=== PATIENT | female | born 2000 | race Two or more races ===

== ENCOUNTER 2022-05-19 09:47 | Emergency (ER) | payer MEDICAID, OTHER ==
[~2022-05-19] VITALS: Ht 160 cm; Wt 68.0 kg
[2022-05-19 10:45] LABS: Basophils # (auto) 0 10 ^3/uL (0-0.2); Basophils % (auto) 0.2 % (0.0-2.0); Eosinophils # (auto) 0 10 ^3/uL (0-0.8); Eosinophils % (auto) 0.6 % (0.0-7.0); Hematocrit 39.4 % (36.0-46.0); Hemoglobin 13.4 g/dL (12.2-16.2); Lymphocytes # (auto) 0.8 10 ^3/uL (0.4-5.4); Lymphocytes % (auto) 13.2 % (10.0-50.0); Mean Corpuscular Hemoglobin 28.1 pg (28.0-32.0); Mean Corpuscular Volume 82.6 fL (80.0-100.0); Monocytes # (auto) 0.5 10 ^3/uL (0-1.3); Neutrophils # (auto) 4.8 10 ^3/uL (1.6-8.6); Nucleated Red Blood Cells % 0.1 %; Red Blood Cells 4.77 10^6/uL (4.0-5.20); Red Cell Distribution Width 13.7 % (11.8-14.3); White Blood Cell 6.2 10^3/uL (4.4-10.8)
[2022-05-19 11:33] LABS: Urine Bacteria MOD /hpf (None Seen); Urine Blood TRACE /uL (Negative); Urine Specific Gravity 1.023 (1.001-1.035); Urine WBC 6 /hpf (0 - 5)
[2022-05-19 11:39] LABS: Potassium 4.3 mmol/L (3.5-5.1)
[2022-05-19 11:50] LABS: Albumin 4.3 g/dL (3.4-5.0); BUN/Creatinine Ratio 15.6; Bilirubin, Total 0.6 mg/dL (0.2-1.0); Calcium 8.7 mg/dL (8.5-10.1); Total Protein 7.6 g/dL (6.4-8.2)
[2022-05-19] MEDS ORDERED: AZIT1POW PO (12:45)
[2022-05-19 13:20] VITALS: BP 99/60
== END 2022-05-19 13:18 | disposition home or self-care (01) ==
LOC: ER 09:47
DX: J02.9 Acute pharyngitis, unspecified (principal); Z88.1 Allergy status to other antibiotic agents
CPT/HCPCS: 36415; 80053; 81001; 84702; 85025

== ENCOUNTER 2023-03-30 14:59 | Emergency (ER) | payer MEDICAID ==
[~2023-03-30] VITALS: Ht 160 cm; Wt 65.0 kg
[~2023-03-30 14:59] MED LIST: AZIT1POW PO
[2023-03-30 15:04] VITALS: BP 116/68; PULSE 75; RESP 18; O2SAT 100
[2023-03-30] MEDS ORDERED: DICYCLOMINE HCL (10MG/ML) 2 ML AMPULE IM ONE (15:15)
[2023-03-30] MEDS ORDERED: ONDANSETRON ODT 4 MG TAB PO ONE (15:15)
[2023-03-30] MEDS ORDERED: KETOROLAC TROMETH 60MG/2ML VIAL IM ONE (15:15)
[2023-03-30 15:27] LABS: Basophils # (auto) 0 10 ^3/uL (0-0.2); Basophils % (auto) 0.4 % (0.0-2.0); Eosinophils # (auto) 0.1 10 ^3/uL (0-0.8); Hematocrit 39.6 % (36.0-46.0); Hemoglobin 13.5 g/dL (12.2-16.2); Lymphocytes # (auto) 1.9 10 ^3/uL (0.4-5.4); Lymphocytes % (auto) 33.4 % (10.0-50.0); Mean Corpuscular Hemoglobin 28.8 pg (28.0-32.0); Mean Corpuscular Hgb Conc. 34.1 g/dL (32.0-36.0); Mean Corpuscular Volume 84.3 fL (80.0-100.0); Monocytes # (auto) 0.4 10 ^3/uL (0-1.3); Monocytes % (auto) 7.7 % (0.0-12.0); Neutrophils # (auto) 3.2 10 ^3/uL (1.6-8.6); Neutrophils % (auto) 56.5 % (37.0-80.0); Nucleated Red Blood Cells % 0.2 %; Red Cell Distribution Width 13.8 % (11.8-14.3); White Blood Cell 5.6 10^3/uL (4.4-10.8)
[2023-03-30 15:51] LABS: Acetaminophen < 2.0 UG/ML (10.0-20.0)
[2023-03-30 15:52] LABS: Alanine Aminotransferase 10 U/L (7-40); Albumin 4.7 g/dL (3.2-4.8); Alkaline Phosphatase 85 U/L (46-116); Anion Gap 7 (5-15); Aspartate Aminotransferase 11 U/L (13-40); Bilirubin, Total 0.6 mg/dL (0.2-1.0); Blood Urea Nitrogen 12 mg/dL (9-23); Calcium 9.5 mg/dL (8.7-10.4); Carbon Dioxide 26 mmol/L (20-30); Chloride 106 mmol/L (98-107); Glucose 93 mg/dL (74-106); Lipase 41 U/L (12-53); Potassium 3.8 mmol/L (3.5-5.1); Sodium 139 mmol/L (136-145); Total Protein 7.2 g/dL (5.7-8.2)
[2023-03-30 15:57] LABS: Salicylate < 3.0 mg/dL (2.8-20.0)
[2023-03-30 16:20] LABS: Urine Bacteria FEW /hpf (None Seen); Urine Blood Negative /uL (Negative); Urine Clarity Clear (Clear); Urine Color Colorless (Yellow); Urine Protein, UAD Negative (Negative); Urine Specific Gravity 1.006 (1.001-1.035); Urine Urobilinogen Normal (Negative); Urine WBC 1 /hpf (0 - 5)
[2023-03-30 16:34] LABS: Amphetamine Screen, Urine Neg (NEGATIVE); Barbiturate Scree,Urine Neg (NEGATIVE); Benzodiazephine Screen, Urine Neg (NEGATIVE); Cannabinoid Screen, Urine Neg (NEGATIVE); Cocaine Screen, Urine Neg (NEGATIVE); Opiate Scree,Urine Neg (NEGATIVE); Phencyclidine Screen, Urine Neg (NEGATIVE)
[2023-03-30] MEDS ORDERED: ZOFR4T PO ×3 (17:33→17:40)
[2023-03-30] MEDS ORDERED: DICY10CA PO ×3 (17:33→17:40)
[2023-03-30] MEDS ORDERED: NAPR-1334 PO ×3 (17:34→17:40)
== END 2023-03-30 19:47 | disposition home or self-care (01) ==
LOC: ER 14:59
DX: K29.70 Gastritis, unspecified, without bleeding (principal); R10.2 Pelvic and perineal pain; Z79.899 Other long term (current) drug therapy
CPT/HCPCS: 36415; 76705; 80053; 80307; 80320; 80329; 81001; 83690; 83735; 84702; 85025; 96372; 99285; J0500; J1885; Q0162

== ENCOUNTER 2023-06-14 18:20 | Emergency (ER) | payer MEDICAID ==
[~2023-06-14] VITALS: Ht 160 cm; Wt 60.4 kg
[~2023-06-14 18:20] MED LIST changes: +DICY10CA PO; +NAPR-1334 PO; +ZOFR4T PO
[2023-06-14 19:27] LABS: Basophils # (auto) 0 10 ^3/uL (0-0.2); Basophils % (auto) 0.1 % (0.0-2.0); Eosinophils # (auto) 0 10 ^3/uL (0-0.8); Eosinophils % (auto) 0.2 % (0.0-7.0); Hematocrit 40.9 % (36.0-46.0); Hemoglobin 13.9 g/dL (12.2-16.2); Lymphocytes # (auto) 0.8 10 ^3/uL (0.4-5.4); Lymphocytes % (auto) 6.8 % (10.0-50.0); Mean Corpuscular Hemoglobin 28.6 pg (28.0-32.0); Mean Corpuscular Volume 84.1 fL (80.0-100.0); Monocytes # (auto) 0.3 10 ^3/uL (0-1.3); Monocytes % (auto) 3.1 % (0.0-12.0); Neutrophils % (auto) 89.8 % (37.0-80.0); Nucleated Red Blood Cells % 0.1 %; Red Blood Cells 4.86 10^6/uL (4.0-5.20); Red Cell Distribution Width 12.6 % (11.8-14.3); White Blood Cell 11.2 10^3/uL (4.4-10.8)
[2023-06-14] MEDS ORDERED: ONDANSETRON HCL 4 MG/2 ML VIAL IV ONE (19:30)
[2023-06-14] MEDS ORDERED: SODIUM CHLORIDE 0.9% 1,000 ML IV ONE ×2 (19:30)
[2023-06-14 19:39] LABS: Chloride 103 mmol/L (98-107); Potassium 3.8 mmol/L (3.5-5.1); Sodium 138 mmol/L (136-145)
[2023-06-14 19:40] LABS: Anion Gap 9 (5-15); Calcium 9.8 mg/dL (8.7-10.4); Carbon Dioxide 26 mmol/L (20-30)
[2023-06-14 19:46] LABS: BUN/Creatinine Ratio 14.5 (10.0-20.0); Blood Urea Nitrogen 11 mg/dL (9-23); Glucose 120 mg/dL (74-106)
[2023-06-14] MEDS ORDERED: cefTRIAXone 1GM/50ML D5W 50 ML IV ONE (20:00)
[2023-06-14 21:19] LABS: Urine Bacteria FEW /hpf (None Seen); Urine Blood Negative /uL (Negative); Urine Clarity HAZY (Clear); Urine Color Yellow (Yellow); Urine Mucus FEW (None Seen); Urine Protein, UAD 1+ (Negative); Urine Specific Gravity 1.026 (1.001-1.035); Urine Urobilinogen Normal (Negative); Urine WBC 7 /hpf (0 - 5)
[2023-06-14 21:25] LABS: Amphetamine Screen, Urine Neg (NEGATIVE); Barbiturate Scree,Urine Neg (NEGATIVE); Benzodiazephine Screen, Urine Neg (NEGATIVE); Cannabinoid Screen, Urine Neg (NEGATIVE); Cocaine Screen, Urine Neg (NEGATIVE); Opiate Scree,Urine Neg (NEGATIVE); Phencyclidine Screen, Urine Neg (NEGATIVE)
[2023-06-15] MEDS ORDERED: AMOX500T3 PO (01:22)
[2023-06-15] MEDS ORDERED: ZOFR4T PO (01:22)
[2023-06-15] MEDS ORDERED: METR-344 PO (01:22)
[2023-06-15 01:31] VITALS: BP 98/53; TEMP 98.1
[2023-06-15 01:35] VITALS: PULSE 75; RESP 14; O2SAT 97
== END 2023-06-15 01:39 | disposition home or self-care (01) ==
LOC: ER 18:20
DX: K52.9 Noninfective gastroenteritis and colitis, unspecified (principal); R10.2 Pelvic and perineal pain; N39.0 Urinary tract infection, site not specified; Z79.899 Other long term (current) drug therapy
CPT/HCPCS: 36415; 74176; 80048; 80307; 81001; 84702; 85025; 96365; 96375; 99285; J0696; J2405

== ENCOUNTER 2024-11-02 11:24 | Outpatient (CLI) | payer MEDICAID ==
[~2024-11-02 11:24] MED LIST changes: +AMOX500T3 PO; +METR-344 PO; -NAPR-1334 PO; +NAPR-1335 PO
[2024-11-02 11:50] LABS: Basophils # (auto) 0 10 ^3/uL (0-0.2); Basophils % (auto) 0.1 % (0.0-2.0); Eosinophils # (auto) 0.1 10 ^3/uL (0-0.8); Eosinophils % (auto) 1.2 % (0.0-7.0); Hematocrit 35.3 % (36.0-46.0); Hemoglobin 12.2 g/dL (12.2-16.2); Lymphocytes # (auto) 1.2 10 ^3/uL (0.4-5.4); Lymphocytes % (auto) 17.8 % (10.0-50.0); Mean Corpuscular Hgb Conc. 34.7 g/dL (32.0-36.0); Mean Corpuscular Volume 86.3 fL (80.0-100.0); Monocytes # (auto) 0.4 10 ^3/uL (0-1.3); Monocytes % (auto) 5.7 % (0.0-12.0); Neutrophils # (auto) 5.2 10 ^3/uL (1.6-8.6); Neutrophils % (auto) 75.2 % (37.0-80.0); Nucleated Red Blood Cells % 0.1 %; Platelet Count (auto) 132 10^3/uL (140-450); Red Blood Cells 4.09 10^6/uL (4.0-5.20); Red Cell Distribution Width 14.2 % (11.8-14.3); White Blood Cell 6.9 10^3/uL (4.4-10.8)
[2024-11-03 14:07] LABS: Chlamydia Trachomatis, NAA Negative (Negative); Neisseria gonorrhoeae, NAA Negative (Negative)
== END 2024-11-02 17:00 | disposition home or self-care (01) ==
LOC: LAB 11:24
PROVIDERS: ATTEND Obstetrics & Gynecology
DX: Z34.80 Encounter for supervision of other normal pregnancy, unspecified trimester (principal); Z3A.00 Weeks of gestation of pregnancy not specified; Z72.51 High risk heterosexual behavior
CPT/HCPCS: 36415; 85025; 86780

== ENCOUNTER 2024-11-06 07:57 | Observation (INO) | payer MEDICAID ==
[~2024-11-06] VITALS: Ht 157.5 cm; Wt 68.0 kg
[2024-11-06] MEDS ORDERED: PREN-96 PO (12:29)
--- NOTE | 2024-11-06 12:59 | DVH ---
BIOPHYSICAL PROFILE HISTORY: low pan Comparison Study: None TECHNIQUE: Multiple real-time grayscale sonographic images through the gravid uterus of the fetus wi th duplex Doppler color flow and M-mode spectral analysis FINDINGS: BIOPHYSICAL PROFILE: breathing score: 2 movement score: 2 tone score: 2 Quantitative PAN score: 2 (PAN: 9.9 Cm.) Total score: 8 Single live fetus in cephalic presentation. heart rate 147 beats per minute. Anterior placenta without previa or abruption IMPRESSION: 1. Biophysical profile score: 8, normal. 2. No acute findings identified.
--- NOTE | 2024-11-07 08:13 | DVHDS2 ---
Discharge Summary Date of Admission Nov 06, 2024 at 11:05 Date of Discharge: Nov 06, 2024 Admitting Diagnosis 36 weeks oligohydramnios Brief Hx & Hospital Course: NST US performed Operations or Procedures NST US Condition at Discharge: Good Final Diagnosis/Problems List 36 weeks , oligohydramnios Discharge Disposition: Home Discharge Instruct/Medications Diet: Regular Activity: No Restrictions, As Tolerated Discharge Statement: "Patient was advised to return to the ER or call 911 if any headaches, dizziness, shortness of breath, chest pain, abdominal pain, bleeding, fevers, or worsening of medical condition. Patient was counseled about treatment plan, medications, possible side effects, patientverbalized understanding. All questions were answered to the best of my ability. This discharge took greater then 30 minutes in planning, reviewing documentation , counseling the patient, and discussing with other team members." ASSESSMENT ASSESSMENT Assessment Visit Coding OBGYN Date of Service: Nov 06, 2024 Billing Provider: WILL BOWMAN DO CATERING SERVICE MANAGER Common Visit Codes: [id number] INP/OBS CARE(HIGH), 68676-XLJ/OBS SAME DATE (LOW), 67689-UIB/OBS SAME DATE (MOD) CATERING SERVICE MANAGER Procedure Codes: 35310-88- NON-STRESS TEST WILL BOWMAN DO Nov 07, 2024 08:13
== END 2024-11-06 12:37 | disposition home or self-care (01) ==
LOC: LDRP 11:05
PROVIDERS: ADMIT Obstetrics & Gynecology; ATTEND Obstetrics & Gynecology
DX: O41.03X0 Oligohydramnios, third trimester, not applicable or unspecified (principal); Z3A.36 36 weeks gestation of pregnancy; Z79.899 Other long term (current) drug therapy
CPT/HCPCS: 59025; 76819; 81002; 94760; G0378

== ENCOUNTER 2024-11-08 07:04 | Observation (INO) | payer MEDICAID ==
[~2024-11-08 07:04] MED LIST changes: +PREN-96 PO
--- NOTE | 2024-11-08 11:44 | DVH ---
BIOPHYSICAL PROFILE HISTORY: LOW PAN Comparison Study: US BIOPHYSICAL PROFILE on DOS: 11/06/24 TECHNIQUE: Multiple real-time grayscale sonographic images through the gravid uterus of the fetus wi th duplex Doppler color flow and M-mode spectral analysis FINDINGS: BIOPHYSICAL PROFILE: breathing score: 2 movement score: 2 tone score: 2 Quantitative PAN score: 2 (PAN: 13 Cm.) Total score: 8 The cervix is not visualized Single live fetus in cephalic presentation. heart rate 163 beats per minute. Anterior placenta without previa or abruption IMPRESSION: Biophysical profile score: 8
--- NOTE | 2024-11-09 06:27 | DVHDS2 ---
Discharge Summary Date of Admission Nov 08, 2024 at 10:51 Date of Discharge: Nov 08, 2024 Admitting Diagnosis Thirty-six weeks NST BPP performed as well as family any to have history of low PAN Labs/Diagnostic Data: one Brief Hx & Hospital Course: Patient is here at 36 weeks for NST which was performed and biophysical profile with history of low PAN Consults/Reason for consult Thirty-six weeks NST BPP history of oligo Operations or Procedures None Condition at Discharge: Good Final Diagnosis/Problems List 36 weeks history of oligo her for NST BPP which were performed Discharge Disposition: Home Discharge Instruct/Medications Diet: Regular Activity: No Restrictions, As Tolerated Activity comment: Kick counts labor precautions Follow Up/Referral: SROM precautions as scheduled Discharge Statement: "Patient was advised to return to the ER or call 911 if any headaches, dizziness, shortness of breath, chest pain, abdominal pain, bleeding, fevers, or worsening of medical condition. Patient was counseled about treatment plan, medications, possible side effects, patientverbalized understanding. All questions were answered to the best of my ability. This discharge took greater then 30 minutes in planning, reviewing documentation, counseling the patient, and discussing with other team members." ASSESSMENT ASSESSMENT Assessment Visit Coding OBGYN Date of Service: Nov 08, 2024 Billing Provider: WILL BOWMAN DO EMERGENCY RESPONSE TECHNICIAN Common Visit Codes: 85412-GAM/OBS SAME DATE (LOW), 27412-SVK/OBS SAME DATE (MOD), 32771-YHD/OBS SAME DATE (HIGH) EMERGENCY RESPONSE TECHNICIAN Procedure Codes: 10587-92- NON-STRESS TEST WILL BOWMAN DO Nov 09, 2024 06:27
== END 2024-11-08 12:13 | disposition home or self-care (01) ==
LOC: LDRP 10:51
PROVIDERS: ADMIT Obstetrics & Gynecology; ATTEND Obstetrics & Gynecology
DX: Z36.89 Encounter for other specified antenatal screening (principal); Z98.890 Other specified postprocedural states; Z79.899 Other long term (current) drug therapy; Z3A.36 36 weeks gestation of pregnancy
CPT/HCPCS: 59025; 76819; 81002; G0378

== ENCOUNTER 2024-11-23 12:23 | Observation (INO) | payer MEDICAID ==
--- NOTE | 2024-11-23 13:22 | DVH ---
BIOPHYSICAL PROFILE HISTORY: Oligo TECHNIQUE: Multiple transabdominal real-time grayscale sonographic images through the gravid uterus of the fetus with duplex Doppler color flow and M-mode spectral analysis FINDINGS: BIOPHYSICAL PROFILE: breathing score: 2 movement score: 2 tone score: 2 Quantitative PAN score: 2 (PAN: 7.6 Cm.) Total score: 8 The cervix was not seen Single live fetus in ceohalic presentation. heart rate 139.81 beats per minute. Grade II anterior placenta without previa or abruption IMPRESSION: Biophysical profile score: 8/8 Large plancental jama is noted.
--- NOTE | 2024-11-24 08:09 | DVHDS2 ---
Physician Discharge Progress N Final Diagnosis: rom ruled out 38wks Operations or Procedures: Operations or Procedures nst reactive reviewed,sono Condition on Discharge: Good Disposition: Home Discharge Instructions: Diet: Regular Activity: No Restrictions, As Tolerated Medications: na Follow Up Care: Specialist: 2d Discharge Statement: "Patient was advised to return to the ER or call 911 if any headaches, dizziness, shortness of breath, chest pain, abdominal pain, bleeding, fevers, or worsening of medical condition. Patient was counseled about treatment plan, medications, possible side effects, patientverbalized understanding. All questions were answered to the best of my ability. This discharge took greater then 30 minutes in planning, reviewing documentation, counseling the patient, and discussing with other team members." Visit Coding OBGYN Date of Service: Nov 23, 2024 Billing Provider: CHRISTINA ALEXANDER DO DECKHAND CLAM DREDGE Common Visit Codes: 72017-[id number] OBS CARE (HIGH) DECKHAND CLAM DREDGE Procedure Codes: 78162-15- NON-STRESS TEST CHRISTINA ALEXANDER DO Nov 24, 2024 08:09
== END 2024-11-23 14:21 | disposition home or self-care (01) ==
LOC: LDRP 12:23
PROVIDERS: ADMIT Obstetrics & Gynecology; ATTEND Obstetrics & Gynecology
DX: O42.913 Preterm premature rupture of membranes, unspecified as to length of time between rupture and onset of labor, third trimester (principal); Z3A.38 38 weeks gestation of pregnancy; Z79.899 Other long term (current) drug therapy; Z98.890 Other specified postprocedural states
CPT/HCPCS: 59025; 76819; 81002; 84112; 94760; G0378

== ENCOUNTER 2024-11-25 02:16 | Observation (INO) | payer MEDICAID ==
[~2024-11-25] VITALS: Ht 160 cm; Wt 83.0 kg
--- NOTE | 2024-11-25 12:05 | DVH ---
CLINICAL HISTORY: Low amniotic fluid index. COMPARISON: US BIOPHYSICAL PROFILE on DOS: 11/23/24, US BIOPHYSICAL PROFILE on DOS: 11/08/24, US BIOPHYS ICAL PROFILE on DOS: 11/06/24 TECHNIQUE: biophysical profile was performed. Transabdominal sonographic images of the fetus we re obtained. FINDINGS: The fetus is in cephalic position. heart rate measures 153 BPM. Amniotic fluid index measures 12 cm. The placenta is anterior in position without evidence of previa or abruption. Focal h ypoechoic to anechoic structure in the placenta measuring up to 7.0 x 1.8 x 6.4 cm, likely placental jama. BPP profile is an overall score of 8/8, with 2/2 points for breathing, with at least one episode of breathing over a 30 second duration during a 30 minute observation, 2/2 points for m ovements, with 3 or more discrete body or limb movements, 2/2 points for tone, with one or more episodes of extremity extension with return to flexion, or opening and closing of hand, and 2/ 2 points for amniotic fluid, with at least 1 pocket of amniotic fluid that measures 2 cm in 2 perpend icular planes. IMPRESSION: 1. BPP score of 8/8. 2. Amniotic fluid index measures 12.0 cm. 3. Large placental jama again seen.
--- NOTE | 2024-11-30 15:19 | DVHDS2 ---
Physician Discharge Progress N Final Diagnosis: 38wks phillip check 38wks Operations or Procedures: Operations or Procedures nst reactive reviwed,cinthiao Condition on Discharge: Good Disposition: Home Discharge Instructions: Diet: Regular Activity: Light activity Medications: na Follow Up Care: Specialist: 3d Discharge Statement: "Patient was advised to return to the ER or call 911 if any headaches, dizziness, shortness of breath, chest pain, abdominal pain, bleeding, fevers, or worsening of medical condition. Patient was counseled about treatment plan, medications, possible side effects, patientverbalized understanding. All questions were answered to the best of my ability. This discharge took greater then 30 minutes in planning, reviewing documentation , counseling the patient, and discussing with other team members." Visit Coding OBGYN Date of Service: Nov 25, 2024 Billing Provider: CHRISTINA ALEXANDER DO BILLING CLERK Common Visit Codes: 24901-[id number] OBS CARE (HIGH) BILLING CLERK Procedure Codes: 39745-27- NON-STRESS TEST CHRISTINA ALEXANDER DO Nov 30, 2024 15:19
== END 2024-11-25 13:00 | disposition home or self-care (01) ==
LOC: LDRP 11:07
PROVIDERS: ADMIT Obstetrics & Gynecology; ATTEND Obstetrics & Gynecology
DX: O42.913 Preterm premature rupture of membranes, unspecified as to length of time between rupture and onset of labor, third trimester (principal); Z3A.38 38 weeks gestation of pregnancy; Z79.899 Other long term (current) drug therapy; Z98.890 Other specified postprocedural states
CPT/HCPCS: 59025; 76819; 81002; 94760; G0378

== ENCOUNTER 2024-11-28 01:49 | Observation (INO) | payer MEDICAID ==
--- NOTE | 2024-11-28 12:03 | DVH ---
BIOPHYSICAL PROFILE HISTORY: Low PAN TECHNIQUE: Multiple real-time grayscale sonographic images through the gravid uterus of the fetus wi th duplex Doppler color flow. FINDINGS: BIOPHYSICAL PROFILE: breathing score: 2 movement score: 2 tone score: 2 Quantitative PAN score: 2 Total score: 8 out of 8 Single live intrauterine . Cephalic lie. PAN 10.9 cm. heart rate of 141 beats per mi nute. Placental lakes noted. Placenta anteriorly positioned. IMPRESSION: Biophysical profile score: 8 out of 8
--- NOTE | 2024-11-28 23:33 | DVHDS2 ---
Discharge Summary Date of Admission Nov 28, 2024 at 10:54 Date of Discharge: Nov 28, 2024 Admitting Diagnosis 39 + weeks low phillip Brief Hx & Hospital Course: US reassuring , NST performed and reactive Condition at Discharge: Good Final Diagnosis/Problems List Low phillip 39 weeks Discharge Disposition: Home Discharge Instruct/Medications Diet: Regular Activity: Light activity Scheduled Amoxicillin Trihydrate (Amoxicillin), 1 TAB PO TID Azithromycin (Zithromax), 1 PACK PO ONCE Dicyclomine Hcl (Bentyl Capsule), 1 CAP PO TID Metronidazole (Flagyl), 1 TAB PO TID Naproxen Sodium (Naproxen), 220 MG PO BID Ondansetron Odt 4MG Tab (Zofran Po), 4 MG PO TID Ondansetron Odt 4MG Tab (Zofran Po), 4 MG PO DAILY Vit W/ Ferrous Fumara ( One Daily), 1 TAB PO DAILY, (Reported) Discharge Statement: "Patient was advised to return to the ER or call 911 if any headaches, dizziness, shortness of breath, chest pain, abdominal pain, bleeding, fevers, or worsening of medical condition. Patient was counseled about treatment plan, medications, possible side effects, patientverbalized understanding. All questions were answered to the best of my ability. This discharge took greater then 30 minutes in planning, reviewing documentation, counseling the patient, and discussing with other team members." ASSESSMENT ASSESSMENT Assessment Visit Coding OBGYN Date of Service: Nov 28, 2024 Billing Provider: WILL BOWMAN DO WORKPLACE TRAINER AND ASSESSOR Common Visit Codes: [id number] INP/OBS CARE(HIGH), 49833-GIT/OBS SAME DATE (LOW), 09576-MGY/OBS SAME DATE (MOD) WORKPLACE TRAINER AND ASSESSOR Procedure Codes: 04637-70- NON-STRESS TEST WILL BOWMAN DO Nov 28, 2024 23:33
== END 2024-11-28 12:05 | disposition home or self-care (01) ==
LOC: LDRP 10:54
PROVIDERS: ADMIT Obstetrics & Gynecology; ATTEND Obstetrics & Gynecology
DX: O42.913 Preterm premature rupture of membranes, unspecified as to length of time between rupture and onset of labor, third trimester (principal); Z98.890 Other specified postprocedural states; Z3A.39 39 weeks gestation of pregnancy; Z79.899 Other long term (current) drug therapy
CPT/HCPCS: 59025; 76819; 81002; 94760; G0378

== ENCOUNTER 2024-11-30 20:29 | Observation (INO) | payer MEDICAID ==
[~2024-11-30] VITALS: Ht 157.5 cm; Wt 63.5 kg
--- NOTE | 2024-11-30 22:38 | DVHDS2 ---
Physician Discharge Progress N Final Diagnosis: intact amniotic membranes Operations or Procedures: Operations or Procedures 24yo IUP@39.4wks presents to OB triage with c/o of possible SROM this evening with large gush of fluid. Denies UCs/VB/BECKFORD/vision changes/RUQ pain. Endorses +FM. PNC with Dr. Dukes, uncomplicated. VSS OB sono: WNL, PAN 9.88cm Laboratory Tests Test 11/30/24 21:01 Range/Units Placental Tjpsv-3-Gumzwoxlkhdua Negative NST incomplete, FHR baseline appears to be liable 130-150s, need to monitor further. Pt declines further monitoring, and is leaving AMA. Condition on Discharge: Undetermined Disposition: AMA Discharge Instructions: Diet: Regular Activity: No Restrictions, As Tolerated Medications: see med list Follow Up Care: Specialist: pt has IOL scheduled for 12/03/24 Discharge Statement: "Patient was advised to return to the ER or call 911 if any headaches, dizziness, shortness of breath, chest pain, abdominal pain, bleeding, fevers, or worsening of medical condition. Patient was counseled about treatment plan, medications, possible side effects, patientverbalized understanding. All questions were answered to the best of my ability. This discharge took greater then 30 minutes in planning, reviewing documentation, counseling the patient, and discussing with other team members." Visit Coding OBGYN Date of Service: Nov 30, 2024 Billing Provider: WILBERT PULLIAM CNM BURIAL VAULT MAKER Common Visit Codes: 50399-[id number] OBS CARE (HIGH) BURIAL VAULT MAKER Procedure Codes: 12373-82- NON-STRESS TEST WILBERT PULLIAM CNM Nov 30, 2024 22:37
--- NOTE | 2024-11-30 22:44 | DVH ---
LIMITED SURVEY CLINICAL HISTORY: possible SROM COMPARISON: 11/28/2024 TECHNIQUE: Real-time grayscale, color flow and M-mode imaging of the gravid uterus is performed. Findings and impression: Single living intrauterine gestation. Cephalic presentation. heart rate 139 beats per minute. Placenta is anterior. The cervix is not clearly visualized. No definite evidence of abruption or pre via at this time. Current amniotic fluid index 9.9 cm. Previous amniotic fluid index on 11/28/2024 was 10.9 cm. Chrome Polisher reports good movement on real-time imaging.
== END 2024-11-30 22:51 | disposition left against medical advice (07) ==
LOC: LDRP 20:29
PROVIDERS: ADMIT Obstetrics & Gynecology; ATTEND Obstetrics & Gynecology
DX: O41.8X30 Other specified disorders of amniotic fluid and membranes, third trimester, not applicable or unspecified (principal); Z3A.39 39 weeks gestation of pregnancy; Z98.890 Other specified postprocedural states; Z79.899 Other long term (current) drug therapy
CPT/HCPCS: 59025; 76815; 81002; 84112; 94760; G0378

== ENCOUNTER 2024-12-03 06:42 | Inpatient (IN) | payer MEDICAID ==
[~2024-12-03] VITALS: Ht 160 cm; Wt 83.5 kg
[2024-12-03] MEDS ORDERED: NALBUPHINE HCL 10 MG/1ml INJECTION IV PRN (19:45)
[2024-12-03] MEDS ORDERED: LIDOCAINE 2%HCL (LOCAL ANESTH.) INJ 20ML MDV IJ PRN (19:45)
[2024-12-03] MEDS: LACTATED RINGER'S 1,000 ML IV SCH (19:45)
[2024-12-03 20:38] LABS: Hematocrit 35.9 % (36.0-46.0); Hemoglobin 12.6 g/dL (12.2-16.2); Mean Corpuscular Hemoglobin 30.4 pg (28.0-32.0); Mean Corpuscular Volume 86.3 fL (80.0-100.0); Nucleated Red Blood Cells % 0.0 %
[2024-12-03 20:53] LABS: INR 0.93 (0.9-1.15); Partial Thromboplastin Time 26.3 SEC (24.5-34.5); Prothrombin Time 9.9 sec (9.3-11.8)
[2024-12-03 20:55] LABS: Alanine Aminotransferase 10 U/L (7-40); Albumin 4.0 g/dL (3.2-4.8); Anion Gap 10 (5-15); BUN/Creatinine Ratio 10.9 (10.0-20.0); Calcium 9.8 mg/dL (8.7-10.4); Carbon Dioxide 22 mmol/L (20-31); Chloride 104 mmol/L (98-107); Glucose 100 mg/dL (74-106); Potassium 3.8 mmol/L (3.5-5.1); Sodium 136 mmol/L (136-145); Total Protein 6.4 g/dL (5.7-8.2)
[2024-12-03 20:56] LABS: Bilirubin, Total 0.7 mg/dL (0.2-1.0)
--- NOTE | 2024-12-03 20:56 | DVHHP2 ---
OB CC & HPI Date Date of Admission: Dec 03, 2024 Patient Identification: : 3 Para: 1 EDC: Dec 04, 2024 EGA: 39w6d Chief Complaints: Reason for admission: induction of labor Indication for induction: other (low PAN) Admission Nurse Assessment Rev: Yes History of Present Complaints scheduled IOL. No other complaints. Feeling excited Past Medical History Cardiac: No pertinent Hx Pulmonary: No pertinent Hx Central Nervous System: No pertinent Hx GI: No pertinent Hx Hemotology/Oncology: No pertinent Hx Hepatobiliary: No pertinent Hx Psychiatric: No pertinent Hx Musculoskeletal: No pertinent Hx Rheumotologic: No pertinent Hx Infectious Disease: No peritnent Hx ENT: No pertinent Hx Renal/: No pertinent Hx Endocrine: No pertinent Hx Dermatology: No pertinent Hx Past Surgical History: No pertinent Hx OB History OB History Care: Good Care Ultrasounds: Normal mid trimester US Obstetrical Complications: None Medical Complications: None Allergies: Coded Allergies: NO KNOWN ALLERGIES (Unverified , 05/19/22) Home Meds Active Scripts Metronidazole (Flagyl) 500 Mg Tab, 1 TAB PO TID for 5 Days, #15 TAB Prov:DELILAH DOWNEY MD 06/15/23 Amoxicillin Trihydrate (Amoxicillin) 500 Mg Tab, 1 TAB PO TID for 5 Days, #15 TAB Prov:DELILAH DOWNEY MD 06/15/23 Ondansetron Odt 4MG Tab (ZOFRAN PO) 4 Mg Tb, 4 MG PO DAILY for 5 Days, #5 TAB ODT TAB-DISSOLVE IN MOUTH, THEN SWALLOW Prov:DELILAH DOWNEY MD 06/15/23 Naproxen Sodium (Naproxen) 220 Mg Tab, 220 MG PO BID for 7 Days, #14 TAB Prov:DILMA BENITEZ MD 03/30/23 Dicyclomine Hcl (BENTYL CAPSULE) 10 Mg Cp, 1 CAP PO TID for 4 Days, #12 CAP 11 Refills Prov:DILMA BENITEZ MD 03/30/23 Ondansetron Odt 4MG Tab (ZOFRAN PO) 4 Mg Tb, 4 MG PO TID for 7 Days, #21 TAB ODT TAB-DISSOLVE IN MOUTH, THEN SWALLOW Prov:DILMA BENITEZ MD 03/30/23 Azithromycin (Zithromax) 1 Gm Pow, 1 PACK PO ONCE, #1 PACK Prov:JASON BOLDEN MD 05/19/22 Reported Medications Vit W/ Ferrous Fumara ( One Daily) Daily Tab, 1 TAB PO DAILY, #90 TAB 3 Refills 11/06/24 Current Medications Current Medications Medications (Trade) Dose Ordered Sig/Lynette Route PRN Reason Start Time Stop Time Status Last Admin Lactated Ringer's 1,000 ml @ 125 mls/hr Q8H IV 12/03/24 19:45 UNV Nalbuphine HCl (Nubain) 10 mg Q4HP PRN IV MODERATE PAIN (4-6 PAIN SCALE) 12/03/24 19:45 UNV Witch Carolin (Tucks) 1 pad PRN PRN TOP PERINEAL AREA DISCOMFORT 12/03/24 19:45 UNV Sodium Lauryl Sulfate (Phisoderm) 240 ml PRN PRN TOP PERINEAL AREA DISCOMFORT 12/03/24 19:45 UNV Benzocaine (Dermoplast) 1 applic PRN PRN TOP PERINEAL AREA DISCOMFORT 12/03/24 19:45 UNV Misoprostol (Cytotec) 50 mcg Q4HPRN PRN PO CERVICAL RIPENING 12/04/24 01:00 UNV Lidocaine HCl (Xylocaine) 40 ml ONCE PRN IJ PERINEAL AREA DISCOMFORT 12/03/24 19:45 UNV Family & Social History Family/Social History Blood Type: O+ Rubella: immune RPR/VDRL: Negative (NR) GBS Status: Negative HBsAG: Negative Review of Systems Constitutional: No symptom reported Ears, Nose, & Throat: No symptom reported Eyes: No symptom reported Pulmonary/Respiratory: No symptom reported Cardiovascular: No symptom reported Gastrointestinal: No symptom reported Genitourinary: No symptom reported Musculoskeletal: No symptom reported Skin: No symptom reported Psychiatric: No symptom reported Endocrine: No symptom reported Hemotologic/Lymphatic: No symptom reported OB Admission Exam Physical Exam Vitals: 2120: T: 98.3 2151: BP: 112/56 HR: 90 SpO2: 98% HEENT: PERRLA (A&O x4. Affect appropriate) Heart: Rhythm Normal Lungs: Clear Abdomen: Gravid Extremities: Normal Reflexes: Normal Cervical Dilatation: 3cm Effacement: Other (60) Station: -3 Membranes: Intact Heart Rate: 120's Accelerations: Accelerations Present Decelerations: No Decelerations Bi Specialist Variability: Average (6-25) Contractions on Admission: >10 Minutes Apart Intensity: Mild OB Plan Plan Admitting Diagnosis: Induction of Labor Plan: Induction Induction Methd: Misoprostol protocol Other Plan: ASSESSMENT: -24 yo , IUP at 39w6d -Labor -Category 1 Tracing PLAN: Plan of care discussed with Patient and partner / family Process, Risks, benefits of available management options discussed, including Internal monitoring of UCs & FHT, AROM, amnioinfusion etc only when indicated Patient agrees to starting induction at this time; other interventions as indicated Informed Consent obtained Consent for possible blood transfusion obtained. All questions answered. -Admit to Place for IOL. Start 50mcg PO misoprostol q 4 hours at 0100, per protocol -Routine L&D Admission orders -EFM per policy. Intermittent monitoring OK while patient is not on medication for induction -Encourage ambulation and/exercises / frequent position change to facilitate labor & descent -Supportive care as needed -Anticipate Visit Coding OBGYN Date of Service: Dec 03, 2024 Billing Provider: MARYLOU HDZ CNM M[employer]ICIPAL [employer] JUDGE Common Visit Codes: [id number] INP/OBS CARE (HIGH) MARYLOU HDZ CNM Dec 03, 2024 20:56
[2024-12-03 21:03] LABS: Alkaline Phosphatase 121 U/L (46-116); Blood Urea Nitrogen 6 mg/dL (9-23)
[2024-12-03 22:08] LABS: Urine Protein, UAD Negative (Negative)
[2024-12-03 22:25] LABS: Amphetamine Screen, Urine Neg (NEGATIVE); Barbiturate Scree,Urine Neg (NEGATIVE); Benzodiazephine Screen, Urine Neg (NEGATIVE); Cannabinoid Screen, Urine Neg (NEGATIVE); Cocaine Screen, Urine Neg (NEGATIVE); Opiate Scree,Urine Neg (NEGATIVE); Phencyclidine Screen, Urine Neg (NEGATIVE)
[2024-12-04] MEDS: WITCH HAZEL-GLYCERIN PAD TOP PRN (00:55)
[2024-12-04] MEDS: DERMOPLAST 60ML BOTTLE TOP PRN (00:55)
[2024-12-04] MEDS: PHISODERM TOP SOLN 240ML BTL TOP PRN (00:55)
--- NOTE | 2024-12-04 07:58 | DVHPN2 ---
Chief Complaints Patient reports: No new complaints Nursing reports: No new complaints Objective Medications Current Medications Medications (Trade) Dose Ordered Sig/Lynette Route PRN Reason Start Time Stop Time Status Last Admin Benzocaine (Dermoplast) 1 applic PRN PRN TOP PERINEAL AREA DISCOMFORT 12/03/24 19:45 12/04/24 00:55 Lactated Ringer's 1,000 ml @ 125 mls/hr Q8H IV 12/03/24 19:45 12/04/24 02:39 Lidocaine HCl (Xylocaine) 40 ml ONCE PRN IJ PERINEAL AREA DISCOMFORT 12/03/24 19:45 Misoprostol (Cytotec) 50 mcg Q4HPRN PRN PO CERVICAL RIPENING 12/04/24 01:00 12/04/24 05:48 Nalbuphine HCl (Nubain) 10 mg Q4HP PRN IV MODERATE PAIN (4-6 PAIN SCALE) 12/03/24 19:45 Sodium Lauryl Sulfate (Phisoderm) 240 ml PRN PRN TOP PERINEAL AREA DISCOMFORT 12/03/24 19:45 12/04/24 00:55 Witch Carolin (Tucks) 1 pad PRN PRN TOP PERINEAL AREA DISCOMFORT 12/03/24 19:45 12/04/24 00:55 Others ve-3.5cm/60/-3 Studies Laboratory Tests 12/03/24 20:22 12/03/24 19:44 Test 12/03/24 20:22 Range/Units Serum Glucose 100 74-106 mg/dL Ass/Plan Assessment term preg iol Plan may have epidural rec 2 cytotec Visit Coding OBGYN Date of Service: Dec 04, 2024 Billing Provider: CHRISTINA ALEXANDER DO APPLICATOR SPRAYER Common Visit Codes: [id number] OBS CARE (HIGH) APPLICATOR SPRAYER Procedure Codes: 44412-67- NON-STRESS TEST CHRISTINA ALEXANDER DO Dec 04, 2024 07:58
[2024-12-04] MEDS ORDERED: TERBUTALINE SULFATE 1 MG/ML 1ML VIAL SC PRN (10:45)
[2024-12-04] MEDS ORDERED: NALOXONE HCL 0.4 MG/ML VIAL IV ONE (11:15)
[2024-12-04] MEDS ORDERED: LACTATED RINGER'S 500 ML IV ONE (11:15)
--- NOTE | 2024-12-04 11:21 | DVHPN2 ---
Chief Complaints Patient reports: No new complaints Nursing reports: No new complaints Objective Medications Current Medications Medications (Trade) Dose Ordered Sig/Lynette Route PRN Reason Start Time Stop Time Status Last Admin Benzocaine (Dermoplast) 1 applic PRN PRN TOP PERINEAL AREA DISCOMFORT 12/03/24 19:45 12/04/24 00:55 Lactated Ringer's 1,000 ml @ 125 mls/hr Q8H IV 12/04/24 10:45 Lidocaine HCl (Xylocaine) 40 ml ONCE PRN IJ PERINEAL AREA DISCOMFORT 12/03/24 19:45 Misoprostol (Cytotec) 50 mcg Q4HPRN PRN PO CERVICAL RIPENING 12/04/24 01:00 12/04/24 05:48 Nalbuphine HCl (Nubain) 10 mg Q4HP PRN IV MODERATE PAIN (4-6 PAIN SCALE) 12/03/24 19:45 Oxytocin 1,000 ml @ 6 ml/hr Q24H IV 12/04/24 10:45 Sodium Lauryl Sulfate (Phisoderm) 240 ml PRN PRN TOP PERINEAL AREA DISCOMFORT 12/03/24 19:45 12/04/24 00:55 Terbutaline Sulfate (Brethine Inj) 0.25 mg ONCE PRN SC Uterine tachysystole 12/04/24 10:45 Witch Carolin (Tucks) 1 pad PRN PRN TOP PERINEAL AREA DISCOMFORT 12/03/24 19:45 12/04/24 00:55 Others ve-5cm/80/-2 Studies Laboratory Tests 12/03/24 20:22 12/03/24 19:44 Test 12/03/24 20:22 Range/Units Serum Glucose 100 74-106 mg/dL Ass/Plan Assessment term preg iol Plan awaiting epidural refuses pitocin wants epidural first Visit Coding OBGYN Date of Service: Dec 04, 2024 Billing Provider: CHRISTINA ALEXANDER DO TREE FARMER Common Visit Codes: [id number] OBS CARE (HIGH) TREE FARMER Procedure Codes: 28864-25- NON-STRESS TEST CHRISTINA ALEXANDER DO Dec 04, 2024 11:21
[2024-12-04] MEDS: LACTATED RINGER'S 1,000 ML IV SCH (12:27)
[2024-12-04] MEDS: LACT. RINGERS/OXYTOCIN 20UNITS 1,000 ML IV SCH (12:29)
[2024-12-04] MEDS: ROPIVACAINE HCL 100 ML ONE ×2 (12:33→19:26)
--- NOTE | 2024-12-04 19:45 | DVHPN2 ---
[facility] Labor Progress Note Date and Time Seen Date Seen: Dec 04, 2024 Time Seen: 19:20 Subjective Patient reports: No new complaints, Feels better Subjective Comment Now comfortable, pain 0/10 with replaced epidural line. Objective Vital Signs VSS Monitoring Method Monitoring Method: External Heart Rate Heart Rate Baseline: 125 Heart Rate Variability: Moderate Presence of FHR Accelerations: Yes Heart Rate Type of Decel: Early Deceleraions Are all 5 Components of the FH: Yes Contractions Contractions Frequency: Other (Q 2-3min) Duration of Contraction: 60 Contractions Intensity: Moderate Contractions Resting Tone: Relaxed Membranes Membranes: Ruptured Amniotic Fluid Color: Clear Vaginal Exam Vag Exam Deferred: Yes Medications Medications - Pitocin: Yes Medication - Epidural: Yes Lab Results Lab Results Vital Signs Date Time Temp Pulse Resp B/P (MAP) Pulse Ox O2 Delivery O2 Flow Rate FiO2 12/05/24 07:00 97.6 78 14 88/52 (64) 98 97.6 12/05/24 07:00 Room Air 0.0 I & O 12/05/24 07:00 Output Total 2200 ml Balance -2200 ml Output Urine Total 2200 ml # Voids 10 # Sanitary Pads 1 Current Medications Medications (Trade) Dose Ordered Sig/Lynette Start Time Stop Time Status Last Admin Dose Admin Lactated Ringer's 1,000 ml @ 125 mls/hr Q8H 12/03/24 19:45 12/04/24 10:58 DC 12/04/24 02:39 125 MLS/HR Nalbuphine HCl (Nubain) 10 mg Q4HP PRN 12/03/24 19:45 Witch Carolin (Tucks) 1 pad PRN PRN 12/03/24 19:45 12/04/24 00:55 1 PAD Sodium Lauryl Sulfate (Phisoderm) 240 ml PRN PRN 12/03/24 19:45 12/04/24 00:55 240 ML Benzocaine (Dermoplast) 1 applic PRN PRN 12/03/24 19:45 12/04/24 00:55 1 APPLIC Misoprostol (Cytotec) 50 mcg Q4HPRN PRN 12/04/24 01:00 12/05/24 01:42 DC 12/04/24 05:48 50 MCG Lidocaine HCl (Xylocaine) 40 ml ONCE PRN 12/03/24 19:45 Lactated Ringer's 1,000 ml @ 125 mls/hr Q8H 12/04/24 10:45 12/05/24 01:42 DC 12/04/24 12:27 125 MLS/HR Oxytocin 1,000 ml @ 6 ml/hr Q24H 12/04/24 10:45 12/05/24 01:42 DC 12/04/24 12:29 6 ML/HR Terbutaline Sulfate (Brethine Inj) 0.25 mg ONCE PRN 12/04/24 10:45 12/05/24 01:42 DC Oxytocin 500 ml @ 999 mls/hr Q31M ONCE 12/04/24 10:45 12/04/24 11:15 DC 12/04/24 20:57 999 MLS/HR Naloxone HCl (Narcan) 0.2 mg PRN ONCE 12/04/24 11:15 12/05/24 04:52 DC Ephedrine Sulfate (ePHEDrine SULFATE) 10 mg PRN ONCE 12/04/24 11:15 12/04/24 11:16 DC 12/04/24 14:42 10 MG Lactated Ringer's 500 ml @ 500 mls/hr Q1H ONCE 12/04/24 11:15 12/05/24 04:50 DC Methylergonovine Maleate (Methergine) 0.2 mg ONCE ONCE 12/04/24 20:30 12/04/24 20:35 DC Oxytocin 500 ml @ 125 mls/hr Q4H ONCE 12/04/24 21:30 12/05/24 01:29 DC 12/04/24 22:50 125 MLS/HR Ibuprofen (Motrin Tablet) 600 mg Q6HP PRN 12/04/24 21:00 12/04/24 21:58 600 MG Acetaminophen (Tylenol Tablet) 650 mg Q4HP PRN 12/04/24 21:00 12/05/24 04:19 650 MG Ephedrine Sulfate (ePHEDrine SULFATE) 10 mg PRN ONCE 12/05/24 02:30 12/05/24 02:42 DC 12/05/24 02:44 10 MG Lactated Ringer's 500 ml @ 500 mls/hr Q1H ONCE 12/05/24 03:45 12/05/24 04:44 DC 12/05/24 04:20 500 MLS/HR Laboratory Tests Test 12/03/24 21:06 12/03/24 20:22 12/03/24 19:44 Range/Units Urine Color Light-yellow Yellow Urine Clarity Clear Clear Urine pH 6.0 5.0-9.0 Urine Specific [place] 1.013 1.001-1.035 Urine Protein Negative Negative Urine Ketones Negative Negative Urine Blood Negative Negative /uL Urine Nitrite Negative Negative Urine Bilirubin Negative Negative Urine Urobilinogen Normal Negative mg/dL Urine Leukocyte Esterase 1+ Negative /uL Urine RBC 1 0 - 4 /hpf Urine Microscopic WBC 4 0-5 /HPF Urine Squamous Epithelial Cells Few <5 /hpf Urine Bacteria Few H None Seen /hpf Urine Glucose Normal Normal mg/dL Urine Opiates Screen Neg NEGATIVE Urine Fentanyl Screen Neg NEGATIVE Urine Barbiturates Screen Neg NEGATIVE Urine Phencyclidine Screen Neg NEGATIVE Urine Amphetamines Screen Neg NEGATIVE Urine Benzodiazepines Screen Neg NEGATIVE Urine Cocaine Screen Neg NEGATIVE Urine Cannabinoids Screen Neg NEGATIVE Prothrombin Time 9.9 9.3-11.8 sec Prothrombin Time INR 0.93 0.9-1.15 Activated Partial Thromboplast Time 26.3 24.5-34.5 SEC Sodium Level 136 136-145 mmol/L Potassium Level 3.8 3.5-5.1 mmol/L Chloride Level 104 98-107 mmol/L Carbon Dioxide Level 22 20-31 mmol/L Anion Gap 10 5-15 Blood Urea Nitrogen 6 L 9-23 mg/dL Creatinine 0.55 0.550-1.02 mg/dL Glomerular Filtration Rate Calc 130 >90 mL/min BUN/Creatinine Ratio 10.9 10.0-20.0 Serum Glucose 100 74-106 mg/dL Calcium Level 9.8 8.7-10.4 mg/dL Total Bilirubin 0.7 0.2-1.0 mg/dL Aspartate Amino Transferase (AST) 25 13-40 U/L Alanine Aminotransferase (ALT) 10 7-40 U/L Alkaline Phosphatase 121 H 46-116 U/L Total Protein 6.4 5.7-8.2 g/dL Albumin 4.0 3.2-4.8 g/dL Treponema pallidum Antibody Non-reactive Negative Hepatitis C Antibody Negative Negative White Blood Count 6.3 4.4-10.8 10^3/uL Red Blood Count 4.16 4.0-5.20 10^6/uL Hemoglobin 12.6 12.2-16.2 g/dL Hematocrit 35.9 L 36.0-46.0 % Mean Corpuscular Volume 86.3 80.0-100.0 fL Mean Corpuscular Hemoglobin 30.4 28.0-32.0 pg Mean Corpuscular Hemoglobin Concent 35.2 32.0-36.0 g/dL Red Cell Distribution Width 14.2 11.8-14.3 % Platelet Count 118 L 140-450 10^3/uL Mean Platelet Volume 8.6 6.9-10.8 fL Neutrophils (%) (Auto) 67.4 37.0-80.0 % Lymphocytes (%) (Auto) 24.5 10.0-50.0 % Monocytes (%) (Auto) 6.7 0.0-12.0 % Eosinophils (%) (Auto) 1.2 0.0-7.0 % Basophils (%) (Auto) 0.2 0.0-2.0 % Neutrophils # (Auto) 4.2 1.6-8.6 10 ^3/uL Lymphocytes # (Auto) 1.5 0.4-5.4 10 ^3/uL Monocytes # (Auto) 0.4 0-1.3 10 ^3/uL Eosinophils # (Auto) 0.1 0-0.8 10 ^3/uL Basophils # (Auto) 0 0-0.2 10 ^3/uL Nucleated Red Blood Cells 0.0 % Assessment Assessment IUP at 39w 6d IOL Plan Plan Continue current management plan Continue EFM Intrauterine resuscitation PRN Continue Oxytocin Frequent position change to facilitate labor / descent Supportive Care Anticipate Plan discussed with: Patient, Other (Family ) Visit Coding OBGYN Date of Service: Dec 04, 2024 Billing Provider: NEWTON ASHBY CNM BELT DRESSER Common Visit Codes: [id number] INP/OBS CARE(HIGH) BELT DRESSER Procedure Codes: 82514-84- NON-STRESS TEST NEWTON ASHBY CNM Dec 04, 2024 19:45
[2024-12-04] MEDS: METHYLERGONOVINE MALEATE 0.2 MG/ML AMP IM ONE ×2 (20:23→21:00)
--- NOTE | 2024-12-04 20:56 | LDN2 ---
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 ANA position placed skin to skin on pt's chest. Cord clamped and cut after pulsation ceased. Cord blood sent. Intact 3-vessel cord placenta delivered spontaneously, Chirag. Pitocin IV bolus started. Placenta sent to pathology. Patient had labor epidural anesthesia. Cervix/vagina inspected via SSE. Cervix intact. Fundus at U, firm, midline, and light lochia. QBL 300ml. VSS. Count correct x2. Patient to care and baby to couplet care, both stable. Visit Coding OBGYN Date of Service: Dec 04, 2024 Billing Provider: NEWTON ASHBY CNM CLOUD OPERATIONS ENGINEER Common Visit Codes: [id number] INP/OBS CARE(HIGH) CLOUD OPERATIONS ENGINEER Procedure Codes: 83211-29- NON-STRESS TEST, 53119-GZT DELIVERY ONLY NEWTON ASHBY CNM Dec 04, 2024 20:56
[2024-12-04] MEDS: LACT. RINGERS/OXYTOCIN 20UNITS 500 ML IV ONE ×2 (20:57→22:50)
[2024-12-04] MEDS: IBUPROFEN 600 MG TAB PO PRN (21:58)
[2024-12-04 22:50] VITALS: BP 123/67; PULSE 76; RESP 16; TEMP 99.4; O2SAT 95
[2024-12-05] VITALS (7 sets, daily range): BP systolic 88–112; BP diastolic 46–65; PULSE 75–97; RESP 14–18; TEMP 97.6–99.3; O2SAT 97–100
[2024-12-05] MEDS: ACETAMINOPHEN 325 MG TAB PO PRN (04:19)
[2024-12-05] MEDS: LACTATED RINGER'S 500 ML IV ONE (04:20)
--- NOTE | 2024-12-05 17:40 | DVHPN2 ---
Progress Note Date Seen: Dec 05, 2024 Subjective S: Lochia minimal Tolerating regular diet well. Ambulating and voiding well w/o feeling lightheaded or dizzy. Passing flatus but no BM yet. Breast feeding. Contraceptive plan: vital signs Vital Sign Date Time Temp Pulse Resp B/P (MAP) Pulse Ox O2 Delivery O2 Flow Rate FiO2 12/05/24 15:00 98.5 97 18 111/65 (80) 100 98.5 12/05/24 07:00 Room Air 0.0 Total Intake and Output 12/04/24 12/04/24 12/05/24 15:00 23:00 07:00 Output Total 700 ml 1500 ml Balance -700 ml -1500 ml medications Current Medications Medications Dose Ordered Sig/Lynette Route Start Time Stop Time Status Last Admin Dose Admin Nalbuphine HCl 10 mg Q4HP PRN IV 12/03/24 19:45 Witch Carolin 1 pad PRN PRN TOP 12/03/24 19:45 12/04/24 00:55 1 PAD Sodium Lauryl Sulfate 240 ml PRN PRN TOP 12/03/24 19:45 12/04/24 00:55 240 ML Benzocaine 1 applic PRN PRN TOP 12/03/24 19:45 12/04/24 00:55 1 APPLIC Lidocaine HCl 40 ml ONCE PRN IJ 12/03/24 19:45 Ibuprofen 600 mg Q6HP PRN PO 12/04/24 21:00 12/04/24 21:58 600 MG Acetaminophen 650 mg Q4HP PRN PO 12/04/24 21:00 12/05/24 04:19 650 MG laboratory and microbiology Laboratory Tests 12/03/24 20:22 12/03/24 19:44 Test 12/03/24 20:22 Range/Units Serum Glucose 100 74-106 mg/dL Objective O: A&O x3 NAD. Afebrile, VSS Chest: heart and lung sounds normal. Breasts: Nipples intact w/o cracks or soreness Abdomen: normal BS, soft, non-tender, no rebound or guarding, fundus firm @ U- 1, lochia minimal Vulva:- no edema, or erythema, Extremities: no edema or tenderness Lochia - minimal Assessment/Plan A/P 24yo now ppd#1 s/p doing well. Blood Type: O Rh: Positive Breast feeding Rubella Immune Pain control with oral medications Bowel regimen: Increase fluid intake and fiber in diet, Laxative PRN PP BCM Plan: undecided Discharge plan: May discharge home tomorrow if condition remains stable Plan discussed with: Patient, Spouse Visit Coding OBGYN Date of Service: Dec 05, 2024 Billing Provider: NEWTON ASHBY CNM CRUTCHER HELPER Common Visit Codes: [id number] INP/OBS CARE(HIGH) NEWTON ASHBY CNM Dec 05, 2024 17:40
--- NOTE | 2024-12-05 19:45 | DVHPN2 ---
Progress Note Date Seen: Dec 05, 2024 Subjective S: Lochia minimal Tolerating regular diet well. Ambulating and voiding well w/o feeling lightheaded or dizzy. Passing flatus but no BM yet. Breast feeding and formula feeding. Contraceptive plan: Undecided Desires and requests to be discharged home today vital signs Vital Sign Date Time Temp Pulse Resp B/P (MAP) Pulse Ox O2 Delivery O2 Flow Rate FiO2 12/05/24 19:21 Room Air 12/05/24 15:00 98.5 97 18 111/65 (80) 100 98.5 12/05/24 07:00 0.0 Total Intake and Output 12/04/24 12/04/24 12/05/24 15:00 23:00 07:00 Output Total 700 ml 1500 ml Balance -700 ml -1500 ml medications Current Medications Medications Dose Ordered Sig/Lynette Route Start Time Stop Time Status Last Admin Dose Admin Nalbuphine HCl 10 mg Q4HP PRN IV 12/03/24 19:45 Witch Carolin 1 pad PRN PRN TOP 12/03/24 19:45 12/04/24 00:55 1 PAD Sodium Lauryl Sulfate 240 ml PRN PRN TOP 12/03/24 19:45 12/04/24 00:55 240 ML Benzocaine 1 applic PRN PRN TOP 12/03/24 19:45 12/04/24 00:55 1 APPLIC Lidocaine HCl 40 ml ONCE PRN IJ 12/03/24 19:45 Ibuprofen 600 mg Q6HP PRN PO 12/04/24 21:00 12/04/24 21:58 600 MG Acetaminophen 650 mg Q4HP PRN PO 12/04/24 21:00 12/05/24 04:19 650 MG laboratory and microbiology Laboratory Tests 12/03/24 20:22 12/03/24 19:44 Test 12/03/24 20:22 Range/Units Serum Glucose 100 74-106 mg/dL Objective OO: A&O x3 NAD. Afebrile, VSS Chest: heart and lung sounds normal. Breasts: Nipples intact w/o cracks or soreness Abdomen: normal BS, soft, non-tender, no rebound or guarding, fundus firm @ U- 1, lochia minimal Vulva:- no edema, or erythema Extremities: no edema or tenderness Lochia - minimal Assessment/Plan A/P 24yo now ppd#1 s/p doing well. Blood Type: O Rh: Positive Breast feeding and Formula feeding Rubella Immune Pain control with oral medications Bowel regimen: Increase fluid intake and fiber in diet, Laxative PRN PP BCM Plan: Undecided. Discharge plan: May discharge home later today if condition remains stable Plan discussed with: Patient, Spouse Visit Coding OBGYN Date of Service: Dec 05, 2024 Billing Provider: NEWTON ASHBY CNM CTRS Common Visit Codes: [id number] INP/OBS CARE(HIGH) NEWTON ASHBY CNM Dec 05, 2024 19:45
--- NOTE | 2024-12-05 19:52 | DVHDS2 ---
Discharge Summary Date of Admission Dec 03, 2024 at 19:18 Date of Discharge: Dec 05, 2024 Admitting Diagnosis IUP at 39w 6d IOL Labs/Diagnostic Data: Laboratory Results Test 12/03/24 21:06 12/03/24 20:22 12/03/24 19:44 Urine Color Light-yellow (Yellow) Urine Clarity Clear (Clear) Urine pH 6.0 (5.0-9.0) Urine Specific [place] 1.013 (1.001-1.035) Urine Protein Negative (Negative) Urine Ketones Negative (Negative) Urine Blood Negative /uL (Negative) Urine Nitrite Negative (Negative) Urine Bilirubin Negative (Negative) Urine Urobilinogen Normal mg/dL (Negative) Urine Leukocyte Esterase 1+ /uL (Negative) Urine RBC 1 /hpf (0 - 4) Urine Microscopic WBC 4 /HPF (0-5) Urine Squamous Epithelial Cells Few /hpf (<5) Urine Bacteria Few /hpf (None Seen) Urine Glucose Normal mg/dL (Normal) Urine Opiates Screen Neg (NEGATIVE) Urine Fentanyl Screen Neg (NEGATIVE) Urine Barbiturates Screen Neg (NEGATIVE) Urine Phencyclidine Screen Neg (NEGATIVE) Urine Amphetamines Screen Neg (NEGATIVE) Urine Benzodiazepines Screen Neg (NEGATIVE) Urine Cocaine Screen Neg (NEGATIVE) Urine Cannabinoids Screen Neg (NEGATIVE) Prothrombin Time 9.9 sec (9.3-11.8) Prothrombin Time INR 0.93 (0.9-1.15) Activated Partial Thromboplast Time 26.3 SEC (24.5-34.5) Sodium Level 136 mmol/L (136-145) Potassium Level 3.8 mmol/L (3.5-5.1) Chloride Level 104 mmol/L (98-107) Carbon Dioxide Level 22 mmol/L (20-31) Anion Gap 10 (5-15) Blood Urea Nitrogen 6 mg/dL (9-23) Creatinine 0.55 mg/dL (0.550-1.02) Glomerular Filtration Rate Calc 130 mL/min (>90) BUN/Creatinine Ratio 10.9 (10.0-20.0) Serum Glucose 100 mg/dL (74-106) Calcium Level 9.8 mg/dL (8.7-10.4) Total Bilirubin 0.7 mg/dL (0.2-1.0) Aspartate Amino Transferase (AST) 25 U/L (13-40) Alanine Aminotransferase (ALT) 10 U/L (7-40) Alkaline Phosphatase 121 U/L (46-116) Total Protein 6.4 g/dL (5.7-8.2) Albumin 4.0 g/dL (3.2-4.8) Treponema pallidum Antibody Non-reactive (Negative) Hepatitis C Antibody Negative (Negative) White Blood Count 6.3 10^3/uL (4.4-10.8) Red Blood Count 4.16 10^6/uL (4.0-5.20) Hemoglobin 12.6 g/dL (12.2-16.2) Hematocrit 35.9 % (36.0-46.0) Mean Corpuscular Volume 86.3 fL (80.0-100.0) Mean Corpuscular Hemoglobin 30.4 pg (28.0-32.0) Mean Corpuscular Hemoglobin Concent 35.2 g/dL (32.0-36.0) Red Cell Distribution Width 14.2 % (11.8-14.3) Platelet Count 118 10^3/uL (140-450) Mean Platelet Volume 8.6 fL (6.9-10.8) Neutrophils (%) (Auto) 67.4 % (37.0-80.0) Lymphocytes (%) (Auto) 24.5 % (10.0-50.0) Monocytes (%) (Auto) 6.7 % (0.0-12.0) Eosinophils (%) (Auto) 1.2 % (0.0-7.0) Basophils (%) (Auto) 0.2 % (0.0-2.0) Neutrophils # (Auto) 4.2 10 ^3/uL (1.6-8.6) Lymphocytes # (Auto) 1.5 10 ^3/uL (0.4-5.4) Monocytes # (Auto) 0.4 10 ^3/uL (0-1.3) Eosinophils # (Auto) 0.1 10 ^3/uL (0-0.8) Basophils # (Auto) 0 10 ^3/uL (0-0.2) Nucleated Red Blood Cells 0.0 % Other Laboratory Tests 12/03/24 20:22 12/03/24 19:44 Brief Hx & Hospital Course: Admitted on 12/03/24 at 39w 6d EGA for IOL. Induction process started with cervical ripening medication and patient then had an uneventful labor, got labor epidural for pain relief. She progressed to 2nd stage of labor and had a over an intact perineum. (See Delivery Note for details) Normal course; meeting milestones w/o any problem or complications. Has had a BM. Condition at Discharge: Stable Final Diagnosis/Problems List Term - Delivered Discharge Disposition: Home Discharge Instruct/Medications Diet: Regular Diet comment: Routine regular diet rich in fiber, protein, iron and vitamin C with adequate fluid intake. Activity: No Restrictions, As Tolerated Activity comment: Advance as tolerated. Balance activities with rest periods No heavy lifting, pushing or straining. Pelvic rest x 6weeks Follow Up/Referral: self care instructions given. emergency signs and symptoms including but not limited to pre-eclampsia precautions and signs of infection, PPH & of PPD reviewed with patient. Follow up with OB Provider in 1 week Medications: Ibuprofen 600mg every 6 hours as needed for pain. Continue Vitamin Scheduled Amoxicillin Trihydrate (Amoxicillin), 1 TAB PO TID Azithromycin (Zithromax), 1 PACK PO ONCE Dicyclomine Hcl (Bentyl Capsule), 1 CAP PO TID Metronidazole (Flagyl), 1 TAB PO TID Naproxen Sodium (Naproxen), 220 MG PO BID Ondansetron Odt 4MG Tab (Zofran Po), 4 MG PO TID Ondansetron Odt 4MG Tab (Zofran Po), 4 MG PO DAILY Vit W/ Ferrous Fumara ( One Daily), 1 TAB PO DAILY, (Reported) Discharge Statement: self care instructions given. emergency signs and symptoms including but not limited to pre-eclampsia precautions and signs of infection, PPH & of PPD reviewed with patient. Follow up with OB Provider in 1 week "Patient was advised to return to the ER or call 911 if any headaches, dizziness, shortness of breath, chest pain, abdominal pain, bleeding, fevers, or worsening of medical condition. Patient was counseled about treatment plan, medications, possible side effects, patientverbalized understanding. All questions were answered to the best of my ability. This discharge took greater then 30 minutes in planning, reviewing documentation, counseling the patient, and discussing with other team members." ASSESSMENT ASSESSMENT Hospital Course Admitted on 12/03/24 at 39w 6d EGA for IOL. Induction process started with cervical ripening medication and patient then had an uneventful labor, got labor epidural for pain relief. She progressed to 2nd stage of labor and had a over an intact perineum. (See Delivery Note for details) Normal course; meeting milestones w/o any problem or complications. Has had a BM. Assessment Term - Delivered Visit Coding OBGYN Date of Service: Dec 05, 2024 Billing Provider: NEWTON ASHBY CNM LAB INTERN Common Visit Codes: [id number] INP/OBS CARE(HIGH), 66974-EXG/OBS DISCH DAY <30MIN NEWTON ASHBY CNM Dec 05, 2024 19:52
== END 2024-12-05 21:13 | disposition home or self-care (01) | DRG 560 ==
LOC: PREOBSVTOIN 06:43 → LDRP 19:18
PROVIDERS: ADMIT Obstetrics & Gynecology; ATTEND Obstetrics & Gynecology
PROC: 3E0DXGC Introduction of Other Therapeutic Substance into Mouth and Pharynx, External Approach (ICD-10-PCS; 2024-12-03)
PROC: 10E0XZZ Delivery of Products of Conception, External Approach (ICD-10-PCS; principal; 2024-12-04)
PROC: 00HU33Z Insertion of Infusion Device into Spinal Canal, Percutaneous Approach (ICD-10-PCS; 2024-12-04)
PROC: 3E0R3BZ Introduction of Anesthetic Agent into Spinal Canal, Percutaneous Approach (ICD-10-PCS; 2024-12-04)
DX: O80 Encounter for full-term uncomplicated delivery (principal); Z37.0 Single live birth; Z3A.39 39 weeks gestation of pregnancy
CPT/HCPCS: 36415; 59025; 59409; 62282; 80053; 80307; 81001; 81002; 85025; 85610; 85730; 86780; 86803; 86850; 86900; 86901; 94760; 94762; 96360; 96361; G0378; J2590

== ENCOUNTER 2025-02-13 07:43 | Emergency (ER) | payer MEDICAID ==
[~2025-02-13] VITALS: Ht 160 cm; Wt 68.3 kg
--- NOTE | 2025-02-13 07:51 | ED.PDOC ---
HPI Allergic reaction HPI Comments 24-year-old female patient presents to the emergency room for a rash. Patient states that the rash started 7 days ago. Patient is ambulatory. Patient is respirations are even and unlabored. Patient has speaking in full sentences. Patient is afebrile. Patient states that she recently discontinued due to high hormones". Patient states that she did go to the OBGYN due to the rash on bilateral legs. Patient states that her OBGYN did not have any treatment plan for her. Patient states that she pumps every 2 hours and expresses about 15 oz at each time. Patient's breasts are full and tender at this time. No purulent discharge, no clogged pores noted, no rash or erythema on the breast. Chief Complaint: Rash Time Seen by MD: 07:50 Primary Care Provider: UNKNOWN Reviewed Notes: Nurses Notes, Medications, Allergies Allergies: Coded Allergies: NO KNOWN ALLERGIES (Unverified , 05/19/22) Home Meds Active Scripts Pseudoephedrine (Sudafed 12 Hour) 120 Mg Tab, 1 TAB PO BID for 5 Days, #10 TAB 0 Refills Prov:[facility] 02/13/25 Prednisone (Prednisone) 20 Mg Tab, 20 MG PO DAILY for 5 Days, #10 MG Prov:[facility] 02/13/25 Diphenhydramine Hcl (Benadryl Allergy) 25 Mg Cap, 25 MG PO TID PRN for 5 Days, #15 CAP Prov:[facility] 02/13/25 Metronidazole (Flagyl) 500 Mg Tab, 1 TAB PO TID for 5 Days, #15 TAB Prov:DELILAH DOWNEY MD 06/15/23 Amoxicillin Trihydrate (Amoxicillin) 500 Mg Tab, 1 TAB PO TID for 5 Days, #15 TAB Prov:DELILAH DOWNEY MD 06/15/23 Ondansetron Odt 4MG Tab (ZOFRAN PO) 4 Mg Tb, 4 MG PO DAILY for 5 Days, #5 TAB ODT TAB-DISSOLVE IN MOUTH, THEN SWALLOW Prov:DELILAH DOWNEY MD 06/15/23 Naproxen Sodium (Naproxen) 220 Mg Tab, 220 MG PO BID for 7 Days, #14 TAB Prov:DILMA BENITEZ MD 03/30/23 Dicyclomine Hcl (BENTYL CAPSULE) 10 Mg Cp, 1 CAP PO TID for 4 Days, #12 CAP 11 Refills Prov:DILMA BENITEZ MD 03/30/23 Ondansetron Odt 4MG Tab (ZOFRAN PO) 4 Mg Tb, 4 MG PO TID for 7 Days, #21 TAB ODT TAB-DISSOLVE IN MOUTH, THEN SWALLOW Prov:DILMA BENITEZ MD 03/30/23 Azithromycin (Zithromax) 1 Gm Pow, 1 PACK PO ONCE, #1 PACK Prov:JASON BOLDEN MD 05/19/22 Reported Medications Vit W/ Ferrous Fumara ( One Daily) Daily Tab, 1 TAB PO DAILY, #90 TAB 3 Refills 11/06/24 Information Source: Patient Mode of Arrival: Ambulatory Severity: Mild Rash: Mild SOB: None Difficulty swallowing: None Pruritus: None Duration: Days Location: Leg (Bilateral LEs) Exposed to: Unknown Developed: Pruritus, Rash History of: None Modyifying Factors: None Associated Sign and Symptoms: None Past Medical History PAST MEDICAL HISTORY: Denies Surgical History: Denies all surgeries OPHTHALMIC TECHNICIAN History: Denies all OPHTHALMIC TECHNICIAN Hx Family History Family History: Reviewed,noncontributory to illness Social History Smoker: Non-Smoker Alcohol: Denies ETOH Use Drugs: Denies Drug Use Lives In: Home Constitutional: denies: chills, diaphoresis, fatigue, fever, malaise, sweats, weakness, others EENTM: denies: blurred vision, double vision, ear bleeding, ear discharge, ear drainage, ear pain, ear ringing, eye pain, eye redness, hearing loss, mouth fauzia n, mouth swelling, nasal discharge, nose bleeding, nose congestion, nose pain, photophobia, tearing, throat pain, throat swelling, voice changes, others Respiratory: denies: cough, hemoptysis, orthopnea, SOB at rest, shortness of breath, SOB with excertion, stridor, wheezing, others Cardiovascular: denies: chest pain, dizzy spells, diaphoresis, Dyspnea on exertion, edema, irregular heart beat, left arm pain, lightheadedness, palpitations, PND, syncope, others Gastrointestinal: denies: abdomen distended, abdominal pain, blood streaked bowels, constipated, diarrhea, dysphagia, difficulty swallowing, hematemesis, melena, nausea, poor appetite, poor fluid intake, rectal bleeding, rectal pain, vomiting, others Genitourinary: denies: abnormal vagina bleeding, burning, dyspareunia, dysuria, flank pain, frequency, hematuria, incontinence, pain, , vagina discharge, urgency, others Neurological: denies: dizziness, fainting, headache, left sided numbness, left sided weakness, numbness, paresthesia, pre-existing deficit, right sided numbness, right sided weakness, seizure, speech problems, tingling, tremors, weakness, others Musculoskeletal: denies: back pain, gout, joint pain, joint swelling, muscle pain, muscle stiffness, neck pain, others Integumetry: reports: rash Allergic/Immunocompromised: denies: Difficulty Healing, Frequent Infections, Hives, Itching, others Hematologic/Lymphatic: denies: anemia, blood clots, easy bleeding, easy bruising, swollen glands, others Endocrine: denies: excessive hunger, excessive sweating, excessive thirst, excessive urination, flushing, intolerance to cold, intolerance to heat, unexplained weight gain, unexplained weight loss, others Psychiatric: denies: anxiety, bipolar disorder, depression, hopeless, panic disorder, schizophrenia, sleepless, suicidal, others All Other Systems: Reviewed and Negative Physical Exam General Appearance: No Apparent Distress, Normal HEENT: Normal ENT Inspection, Pharynx Normal, TMs Normal Neck: Full Range of Motion, Non-Tender, Normal, Normal Inspection Respiratory: Chest Non-Tender, Lungs Clear, No Accessory Muscle Use, No Respiratory Distress, Normal Breath Sounds Cardiovascular: No Edema, No JVD, No Murmur, No Gallop, Normal Peripheral Pulses, Regular Rate/Rhythm Breast Exam: (R) Tenderness, (L) Tenderness Gastrointestinal: No Organomegaly, Non Tender, No Pulsatile Mass, Normal Bowel Sounds, Soft Genitalia: Deferred Pelvic: Deferred Rectal: Deferred Extremities: No calf tenderness, Normal capillary refill, Normal inspection, Normal range of motion, Non-tender, No pedal edema Neurologic: Alert, viscera washer II-XII nml as Tested, No Motor Deficits, Normal Affect, Normal Mood, No Sensory Deficits Cerebellar Function: Normal Reflexes: Normal Skin: Rash (Patient has scattered hives on bilateral legs from the hip flexor down to the ankles with pruritis) Lymphatic: No Adenopathy Was a procedure done? Was a procedure done?: No Differential diagnosis (all) Differential Diagnosis: Anaphylaxis, Angioedema, Contact Dermatitis, Urticaria X-Ray, Labs, Meds, VS Vital Signs Date Time Temp Pulse Resp B/P (MAP) Pulse Ox O2 Delivery O2 Flow Rate FiO2 02/13/25 08:46 98.7 88 16 128/89 (102) 98 98.7 02/13/25 08:46 78 17 97 Room Air 02/13/25 07:44 98.1 87 16 105/52 99 98.1 Current Medications Medications (Trade) Dose Ordered Sig/Lynette Route Start Time Stop Time Status Last Admin Methylprednisolone Sodium Succinate (Solu Medrol) 40 mg ONCE ONCE IM 02/13/25 08:15 02/13/25 08:28 DC 02/13/25 08:31 Famotidine (Pepcid Tablet) 20 mg ONCE ONCE PO 02/13/25 08:15 02/13/25 08:28 DC 02/13/25 08:31 Diphenhydramine HCl (Benadryl Capsule) 25 mg ONCE ONCE PO 02/13/25 08:15 02/13/25 08:28 DC 02/13/25 08:31 X-Ray, Labs, Meds, VS Comment On re-evaluation patient has symptomatic improvement. Patient is stable for discharge at this time. All test results and diagnostic imaging have been interpreted. All diagnostic findings, discharge care, and education instruction provided to the patient. Follow-up with PCP in 2-3 days Patient verbalized understanding, discharge instructions and agrees to treatment plan Vital signs are stable Patient is ambulatory Patient advised of which symptoms necessitate a return visit to the emergency room. Patient to return emergency room for any new worsening symptoms. Patient is aware that the purpose of this visit is for an acute medical emergency requiring emergent stabilization. Chronic conditions, including malignancies have not been ruled out. Patient is instructed to follow up with PCP as directed for continued care and workup. If unable to arrange follow up, patient is to return to the emergency room for reassessment. 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 Patient Education/Counseling: Diagnosis, Treatment, Prognosis Family Education/Counseling: No Family Present SEPSIS Sepsis Screen Vital Signs Date Time Temp Pulse Resp B/P (MAP) Pulse Ox O2 Delivery O2 Flow Rate FiO2 02/13/25 08:46 98.7 88 16 128/89 (102) 98 98.7 02/13/25 08:46 78 17 97 Room Air 02/13/25 07:44 98.1 87 16 105/52 99 98.1 Medications Medications Dose Ordered Sig/Lynette Route Start Time Stop Time Status Last Admin Dose Admin Diphenhydramine HCl 25 mg ONCE ONCE PO 02/13/25 08:15 02/13/25 08:28 DC 02/13/25 08:31 Famotidine 20 mg ONCE ONCE PO 02/13/25 08:15 02/13/25 08:28 DC 02/13/25 08:31 Methylprednisolone Sodium Succinate 40 mg ONCE ONCE IM 02/13/25 08:15 02/13/25 08:28 DC 02/13/25 08:31 Departure 1 Departure Time of Disposition: 08:20 Impression: Primary Impression: Rash Disposition: HOME / SELF CARE / HOMELESS Condition: Stable Additional Instructions: Patient advised to not give baby milk that has been pumped while on medications. Patient also advised to to pump the ear minimal amount needed to relieve pain. Patient also advised that she may apply ice packs to bilateral breasts. Patient advised to freeze cabbage leaves and that they may be applied to breast and to wear a more restrictive bra. e-Prescriptions Pseudoephedrine (Sudafed 12 Hour) 120 Mg Tab 1 TAB PO BID for 5 Days, #10 TAB 0 Refills Prov: [facility] 02/13/25 Prednisone (Prednisone) 20 Mg Tab 20 MG PO DAILY for 5 Days, #10 MG Prov: [facility] 02/13/25 Diphenhydramine Hcl (Benadryl Allergy) 25 Mg Cap 25 MG PO TID PRN for 5 Days, #15 CAP Prov: [facility] 02/13/25 Discharged With: Self Critical Care Note Critical Care Time?: No Stability Stability form required: No Heart Score Heart Score: Heart Score Response (Comments) Value History N/A 0 EKG N/A 0 Age N/A 0 Risk Factors N/A 0 Troponin N/A 0 Total 0 [facility] Feb 13, 2025 07:51
[2025-02-13] MEDS ORDERED: DIPH25CA66 PO (08:15)
[2025-02-13] MEDS ORDERED: PRED20TA2 PO (08:15)
[2025-02-13] MEDS ORDERED: PSEU120T2 PO (08:15)
[2025-02-13] MEDS: methylPREDNISolone SOD SUCC 40 MG/ML VL IM ONE (08:31)
[2025-02-13] MEDS: FAMOTIDINE 20 MG TAB PO ONE (08:31)
[2025-02-13 08:46] VITALS: BP 128/89; PULSE 78; RESP 17; TEMP 98.7; O2SAT 97
== END 2025-02-13 08:48 | disposition home or self-care (01) ==
LOC: ER 07:43
DX: L50.9 Urticaria, unspecified (principal); Z79.899 Other long term (current) drug therapy
CPT/HCPCS: 96372; 99283; J2919